=== PATIENT | female | born 1980 | race Two or more races ===

== ENCOUNTER 2018-12-21 12:39 | Emergency (ER) | payer MEDICAID, OTHER ==
[~2018-12-21] VITALS: Ht 162.6 cm; Wt 83.9 kg
[2018-12-21 14:58] VITALS: BP 109/56
[2018-12-21] MEDS ORDERED: cefTRIAXone SOD 1,000 MG VL IM ONE (15:15)
[2018-12-21] MEDS ORDERED: methylPREDNISolone SOD SUCC 125 MG/2 ML VL IM ONE (15:15)
[2018-12-21] MEDS ORDERED: LIDOCAINE 1% HCL (LOCAL ANESTH.) INJ 20ML MDV ONE (15:38)
== END 2018-12-21 16:45 | disposition home or self-care (01) ==
LOC: ER 12:52
DX: J06.9 Acute upper respiratory infection, unspecified (principal)
CPT/HCPCS: 96372; 99283; J0696; J2001; J2930